=== PATIENT | male | born 1975 | race Caucasian/White ===

== ENCOUNTER 2022-07-09 11:38 | Emergency (ER) | payer MEDICAID ==
[~2022-07-09] VITALS: Ht 177.8 cm; Wt 134.1 kg
[~2022-07-09 11:38] MED LIST: ALBU6.7H14 INH; AMLO10TA13; ATEN50TA2 PO; ESCI10TA PO; FLUT1DIS4 INH
[2022-07-09 11:47] VITALS: BP 143/103
[2022-07-09] MEDS ORDERED: LIDOcaine 1% 30ml preserv. free vial SQ STA (12:48)
[2022-07-09] MEDS ORDERED: amox tr/potassium clavulanate 875/125mg TAB PO ONE (14:05)
[2022-07-09] MEDS ORDERED: AMOX-117 PO (14:08)
[2022-07-09] MEDS ORDERED: HYDR-3965 PO (14:08)
== END 2022-07-09 14:25 | disposition home or self-care (01) ==
LOC: ER 11:38
DX: K04.7 Periapical abscess without sinus (principal); I10 Essential (primary) hypertension; K21.9 Gastro-esophageal reflux disease without esophagitis; Z90.49 Acquired absence of other specified parts of digestive tract; Z88.8 Allergy status to other drugs, medicaments and biological substances; Z79.899 Other long term (current) drug therapy
CPT/HCPCS: 99283

== ENCOUNTER 2023-01-05 08:55 | Emergency (ER) | payer MEDICAID ==
[~2023-01-05] VITALS: Ht 177.8 cm; Wt 135.0 kg
[2023-01-05 08:56] VITALS: BP 138/95
[2023-01-05] MEDS ORDERED: HYDR-3972 PO (09:41)
[2023-01-05] MEDS ORDERED: AMOX-580 PO (09:41)
== END 2023-01-05 10:06 | disposition home or self-care (01) ==
LOC: ER 08:55
DX: K04.7 Periapical abscess without sinus (principal); I10 Essential (primary) hypertension; K21.9 Gastro-esophageal reflux disease without esophagitis; Z72.89 Other problems related to lifestyle; Z90.49 Acquired absence of other specified parts of digestive tract; Z88.8 Allergy status to other drugs, medicaments and biological substances; Z79.899 Other long term (current) drug therapy
CPT/HCPCS: 99283

== ENCOUNTER 2023-03-16 08:22 | Emergency (ER) | payer MEDICAID ==
[~2023-03-16] VITALS: Ht 175.3 cm; Wt 136.0 kg
[2023-03-16] MEDS ORDERED: TRAM50TA2 PO (10:20)
[2023-03-16 10:38] VITALS: BP 152/102
== END 2023-03-16 10:40 | disposition home or self-care (01) ==
LOC: ER 08:23
DX: S50.01XA Contusion of right elbow, initial encounter (principal); M25.422 Effusion, left elbow; M25.522 Pain in left elbow; I10 Essential (primary) hypertension; Z90.49 Acquired absence of other specified parts of digestive tract; Z72.89 Other problems related to lifestyle; Z88.8 Allergy status to other drugs, medicaments and biological substances; Z79.899 Other long term (current) drug therapy; W13.8XXA Fall from, out of or through other building or structure, initial encounter; Y93.55 Activity, bike riding; Y92.89 Other specified places as the place of occurrence of the external cause; Y99.8 Other external cause status
CPT/HCPCS: 29105; 73080; 99283; A4565; A6449

== ENCOUNTER 2023-06-25 06:22 | Emergency (ER) | payer MEDICAID ==
[~2023-06-25] VITALS: Ht 177.8 cm; Wt 130.4 kg
[~2023-06-25 06:22] MED LIST changes: +TRAM50TA2 PO
[2023-06-25] MEDS ORDERED: PENI500T2 PO (06:47)
[2023-06-25 08:22] VITALS: BP 153/100; PULSE 88; RESP 18; TEMP 97.7; O2SAT 100
== END 2023-06-25 08:28 | disposition home or self-care (01) ==
LOC: ER 06:23
DX: K04.7 Periapical abscess without sinus (principal); K02.9 Dental caries, unspecified; K21.9 Gastro-esophageal reflux disease without esophagitis; G89.29 Other chronic pain; M54.9 Dorsalgia, unspecified; I10 Essential (primary) hypertension; J45.909 Unspecified asthma, uncomplicated; Z88.8 Allergy status to other drugs, medicaments and biological substances; Z79.899 Other long term (current) drug therapy
CPT/HCPCS: 99283

== ENCOUNTER 2023-09-20 05:42 | Emergency (ER) | payer MEDICAID ==
[~2023-09-20] VITALS: Ht 177.8 cm; Wt 135.0 kg
[2023-09-20 05:46] VITALS: TEMP 98.9
[2023-09-20] MEDS ORDERED: normal saline 1000ML IV soln IVB ONE (06:40)
[2023-09-20] MEDS ORDERED: BUPIVAcaine/PF 2.5mg/ml (0.25%) 10ml vial SQ ONE (06:50)
[2023-09-20] MEDS ORDERED: CefTRIAXone 2gm/D5W 50ml BAG 50 ML IV ONE (06:50)
[2023-09-20 07:34] LABS: BASOPHILS # (AUTO) 0.1 X10'3 (0-0.2); BASOPHILS % (AUTO) 0.8 % (0-1); EOSINOPHILS # (AUTO) 0.3 X10'3 (0-0.9); EOSINOPHILS % (AUTO) 2.9 % (0-6); HEMATOCRIT 43.4 % (42.0-52.0); HEMOGLOBIN 14.6 g/dl (14.0-17.9); LYMPHOCYTES # (AUTO) 0.9 X10'3 (1.1-4.8); LYMPHOCYTES % (AUTO) 9.9 % (21-51); MEAN CORPUSCULAR HEMOGLOBIN 31.9 PG (27.0-31.0); MEAN CORPUSCULAR HGB CONC 33.6 g/dL (33.0-36.5); MEAN PLATELET VOLUME 8.2 FL (7.4-10.4); MONOCYTES # (AUTO) 1.2 X10'3 (0-0.9); MONOCYTES % (AUTO) 13.2 % (2-12); NEUTROPHILS # (AUTO) 6.7 X10'3 (1.8-7.7); NEUTROPHILS % (AUTO) 73.2 % (42-75); PLATELET COUNT 303 X10'3 (140-440); RED BLOOD COUNT 4.56 X10'6 (4.70-6.10); RED CELL DISTRIBUTION WIDTH 14.3 % (11.5-14.5); WHITE BLOOD COUNT 9.2 X10'3 (4.5-11.0)
[2023-09-20 07:47] LABS: ALANINE AMINOTRANSFERASE 84 U/L (12-78); ALBUMIN 3.8 G/DL (3.4-5.0); ALBUMIN/GLOBULIN RATIO 0.9 (1.1-1.5); ALKALINE PHOSPHATASE 83 IU/L (46-116); ANION GAP 7 (8-16); ASPARTATE AMINO TRANSFERASE 33 U/L (10-37); BILIRUBIN,TOTAL 0.7 MG/DL (0.1-1.0); BLOOD UREA NITROGEN 11 MG/DL (7-18); BUN/CREATININE RATIO 17.5 (10.0-20.0); CALCIUM 8.7 MG/DL (8.5-10.1); CHLORIDE 100 MMOL/L (99-107); CREATININE 0.63 MG/DL (0.60-1.10); GLUCOSE 114 MG/DL (70-104); POTASSIUM 4.5 MMOL/L (3.5-5.1); SODIUM 135 MMOL/L (135-145); TOTAL CARBON DIOXIDE 27.6 MMOL/L (24-32); TOTAL PROTEIN 7.9 G/DL (6.4-8.2); eCRCL 150 ML/MIN; eGFR > 90 ML/MIN
[2023-09-20] MEDS ORDERED: iohexol 300mg/ml 100ml inj. ONE (07:59)
[2023-09-20] MEDS ORDERED: AMOX-117 PO (11:35)
[2023-09-20 11:43] VITALS: BP 163/97; PULSE 70; RESP 14; O2SAT 98
== END 2023-09-20 11:46 | disposition home or self-care (01) ==
LOC: ER 05:42
DX: K08.89 Other specified disorders of teeth and supporting structures (principal); I10 Essential (primary) hypertension; K21.9 Gastro-esophageal reflux disease without esophagitis; G89.29 Other chronic pain; M54.9 Dorsalgia, unspecified; Z88.8 Allergy status to other drugs, medicaments and biological substances; Z79.899 Other long term (current) drug therapy
CPT/HCPCS: 36415; 64400; 70491; 80053; 83605; 83735; 84145; 85025; 87040; 96361; 96365; 99285; J0696; J3490; J7030; Q9967; 41800

== ENCOUNTER 2024-01-14 18:15 | Emergency (ER) | payer MEDICAID ==
[~2024-01-14] VITALS: Ht 177.8 cm; Wt 137.0 kg
[2024-01-14 18:44] VITALS: BP 127/87; PULSE 83; RESP 16; TEMP 98.5; O2SAT 99
[2024-01-14] MEDS ORDERED: ketorolac trometh inj. 60 MG/2 ML VIAL IM ONE (19:45)
[2024-01-14] MEDS ORDERED: AMOX-117 PO (19:45)
[2024-01-14] MEDS: ketorolac tromethamine 15mg/ml inj. IM ONE (20:12)
== END 2024-01-14 20:22 | disposition home or self-care (01) ==
LOC: ER 18:15
DX: K04.7 Periapical abscess without sinus (principal); K08.89 Other specified disorders of teeth and supporting structures; K02.9 Dental caries, unspecified; I10 Essential (primary) hypertension; J45.909 Unspecified asthma, uncomplicated; K21.9 Gastro-esophageal reflux disease without esophagitis; Z88.8 Allergy status to other drugs, medicaments and biological substances; Z79.899 Other long term (current) drug therapy; Z79.2 Long term (current) use of antibiotics; Z90.49 Acquired absence of other specified parts of digestive tract
CPT/HCPCS: 96372; 99283; J1885

== ENCOUNTER 2024-04-22 17:33 | Emergency (ER) | payer MEDICAID ==
[~2024-04-22] VITALS: Ht 175.3 cm; Wt 136.9 kg
[2024-04-22 18:33] LABS: ALBUMIN 3.9 G/DL (3.4-5.0); ANION GAP 13 (8-16); BLOOD UREA NITROGEN 14 MG/DL (7-18); BUN/CREATININE RATIO 13.6 (10.0-20.0); C-REACTIVE PROTEIN 2.34 MG/DL (0.0-0.5); CALCIUM 8.6 MG/DL (8.5-10.1); CHLORIDE 96 MMOL/L (99-107); CREATININE 1.03 MG/DL (0.60-1.10); GLUCOSE 111 MG/DL (70-104); SODIUM 132 MMOL/L (135-145); TOTAL CARBON DIOXIDE 23.3 MMOL/L (24-32); eCRCL 89 ML/MIN; eGFR 77 ML/MIN
[2024-04-22 18:51] LABS: BASOPHILS # (AUTO) 0.1 X10'3 (0-0.2); BASOPHILS % (AUTO) 0.9 % (0-1); EOSINOPHILS # (AUTO) 0.4 X10'3 (0-0.9); HEMATOCRIT 43.9 % (42.0-52.0); HEMOGLOBIN 14.9 g/dl (14.0-17.9); LYMPHOCYTES # (AUTO) 1.7 X10'3 (1.1-4.8); MEAN CORPUSCULAR HEMOGLOBIN 32.9 PG (27.0-31.0); MEAN CORPUSCULAR HGB CONC 33.9 g/dL (33.0-36.5); MEAN PLATELET VOLUME 8.1 FL (7.4-10.4); MONOCYTES % (AUTO) 11.1 % (2-12); NEUTROPHILS # (AUTO) 6.2 X10'3 (1.8-7.7); PLATELET COUNT 401 X10'3 (140-440); RED BLOOD COUNT 4.53 X10'6 (4.70-6.10); RED CELL DISTRIBUTION WIDTH 13.9 % (11.5-14.5); WHITE BLOOD COUNT 9.4 X10'3 (4.5-11.0)
[2024-04-22] MEDS ORDERED: iohexol 300mg/ml 100ml inj. ONE (19:13)
[2024-04-22] MEDS: ondansetron/PF 4mg/2ml inj IV ONE (20:08)
[2024-04-22] MEDS: piperacillin/tazo 3.375gm/50ml 50 ML IV ONE (20:08)
[2024-04-22] MEDS: morphine 4 MG/ML inj SYRINge IV ONE ×2 (20:08→21:35)
[2024-04-22] MEDS: normal saline 1000ml 1,000 ML IV ONE (20:08)
[2024-04-22] MEDS: vancomycin/NS 1 GM ADD-VANTAGE 250 ML IV ONE (21:15)
[2024-04-22] MEDS: ketorolac trometh 15mg/ml vial 15 MG/ML ML IV ONE (21:36)
[2024-04-22] MEDS: HYDROcodone/acetaminophen 5mg/325mg tablet PO ONE (21:38)
[2024-04-22] MEDS ORDERED: HYDR-3965 PO (21:40)
[2024-04-22] MEDS ORDERED: DOXY-460 PO (21:40)
[2024-04-22] MEDS ORDERED: CEPH-585 PO (21:40)
[2024-04-22] MEDS ORDERED: ONDA-245 PO (21:40)
[2024-04-22] MEDS: DOXYCYCLINE 100MG CAPSULE PO STA (21:46)
[2024-04-22 21:59] LABS: BILIRUBIN,URINE NEGATIVE (Neg); CLARITY,URINE CLEAR (Clear); COLOR,URINE STRAW (Yellow); GLUCOSE, URINE NEGATIVE (Neg); KETONES,URINE NEGATIVE (Neg); LEUKOCYTE ESTERASE ,URINE NEGATIVE (Neg); NITRITES, URINE NEGATIVE (Neg); OCCULT BLOOD,URINE NEGATIVE (Neg); PROTEIN,URINE NEGATIVE (Neg); UROBILINOGEN,URINE 0.2 E.U/dL (0.2-1.0)
[2024-04-22 22:04] LABS: UA COLLECTION TYPE CLN CATCH MIDSTREAM
[2024-04-22] MEDS: TETanus/Pertussis (Acell)/Diphther VAC/PF (Tdap-Adult) 0.5ml syringe IMVAC ONE (22:11)
[2024-04-22] MEDS: bacitracin 15gm ointment TP ONE (22:11)
[2024-04-22 23:21] VITALS: BP 130/79; PULSE 90; RESP 16; TEMP 97.8; O2SAT 92
== END 2024-04-22 23:25 | disposition home or self-care (01) ==
LOC: ER 17:34
DX: L03.115 Cellulitis of right lower limb (principal); I10 Essential (primary) hypertension; J45.909 Unspecified asthma, uncomplicated; K21.9 Gastro-esophageal reflux disease without esophagitis; G89.29 Other chronic pain; M54.9 Dorsalgia, unspecified; Z88.8 Allergy status to other drugs, medicaments and biological substances; Z79.899 Other long term (current) drug therapy; Z90.49 Acquired absence of other specified parts of digestive tract
CPT/HCPCS: 36415; 73701; 80048; 81003; 83605; 84145; 85025; 85651; 86140; 87040; 90471; 90715; 96365; 96366; 96368; 96375; 96376; 99285; A6258; J1885; J2270; J2405; J2543; J3370; J7030; Q9967

== ENCOUNTER 2024-08-19 14:11 | Emergency (ER) | payer MEDICAID ==
[~2024-08-19] VITALS: Ht 177.8 cm; Wt 127.3 kg
[~2024-08-19 14:11] MED LIST changes: +ONDA-245 PO
[2024-08-19 14:22] VITALS: BP 111/80; TEMP 97.4
[2024-08-19] MEDS ORDERED: HYDR-3973 PO (16:59)
[2024-08-19] MEDS ORDERED: AMOX875T10 PO (16:59)
[2024-08-19 17:10] VITALS: PULSE 74; RESP 18; O2SAT 97
== END 2024-08-19 17:12 | disposition home or self-care (01) ==
LOC: ER 14:12
DX: K04.7 Periapical abscess without sinus (principal); I10 Essential (primary) hypertension; G89.29 Other chronic pain; J45.909 Unspecified asthma, uncomplicated; K21.9 Gastro-esophageal reflux disease without esophagitis; Z88.8 Allergy status to other drugs, medicaments and biological substances; Z79.899 Other long term (current) drug therapy; Z90.49 Acquired absence of other specified parts of digestive tract
CPT/HCPCS: 99283

== ENCOUNTER 2024-10-11 15:27 | Emergency (ER) | payer MEDICAID ==
[~2024-10-11] VITALS: Ht 177.8 cm; Wt 127.4 kg
[2024-10-11 16:09] LABS: BILIRUBIN,URINE NEGATIVE (Neg); CLARITY,URINE CLOUDY (Clear); COLOR,URINE YELLOW (Yellow); GLUCOSE, URINE NEGATIVE (Neg); KETONES,URINE TRACE mg/dl (Neg); LEUKOCYTE ESTERASE ,URINE MODERATE (Neg); NITRITES, URINE POSITIVE (Neg); OCCULT BLOOD,URINE MODERATE (Neg); PROTEIN,URINE 100 mg/dl (Neg)
[2024-10-11 16:11] LABS: UA COLLECTION TYPE CLN CATCH MIDSTREAM
[2024-10-11 16:25] LABS: BACTERIA,URINE 4+ /HPF (Neg); RBC,URINE 20-50 /HPF (0-2); SQUAMOUS EPITHELIAL CELL,UR FEW /LPF (FEW); WBC CLUMPS,URINE FEW /HPF (NEGATIVE); WBC,URINE TNTC /HPF (0-4)
[2024-10-11] MEDS: CefTRIAXone 1000mg IM Kit (w/lidocaine diluent) IM ONE (17:46)
[2024-10-11] MEDS ORDERED: LIDO700A32 TOP (18:13)
[2024-10-11] MEDS ORDERED: CEFU500T66 PO (18:13)
[2024-10-11 18:37] VITALS: BP 144/94; PULSE 94; RESP 16; TEMP 98.6; O2SAT 97
== END 2024-10-11 18:39 | disposition home or self-care (01) ==
LOC: ER 15:28
DX: S20.212A Contusion of left front wall of thorax, initial encounter (principal); N39.0 Urinary tract infection, site not specified; I10 Essential (primary) hypertension; J45.909 Unspecified asthma, uncomplicated; K21.9 Gastro-esophageal reflux disease without esophagitis; G89.29 Other chronic pain; Z88.8 Allergy status to other drugs, medicaments and biological substances; Z79.899 Other long term (current) drug therapy; Z90.49 Acquired absence of other specified parts of digestive tract; X58.XXXA Exposure to other specified factors, initial encounter; Y93.89 Activity, other specified; Y92.89 Other specified places as the place of occurrence of the external cause; Y99.8 Other external cause status
CPT/HCPCS: 36415; 71045; 81001; 87088; 87491; 87591; 96372; 99284; J0696; 87077; 87186

== ENCOUNTER 2024-10-23 21:03 | Emergency (ER) | payer MEDICAID ==
[~2024-10-23] VITALS: Ht 177.8 cm; Wt 107.3 kg
[~2024-10-23 21:03] MED LIST changes: +CEFU500T66 PO; +LEVO-65 PO; +LIDO700A32 TOP
[2024-10-23 21:32] VITALS: BP 156/78; PULSE 83; O2SAT 95
[2024-10-24 00:08] VITALS: RESP 15
[2024-10-24] MEDS: ketorolac trometh 30MG/ML vial 30 MG/ML VIAL IM ONE (00:08)
[2024-10-24 00:12] VITALS: TEMP 96.6
== END 2024-10-24 00:13 | disposition home or self-care (01) ==
LOC: ER 21:03
DX: M79.631 Pain in right forearm (principal); I10 Essential (primary) hypertension; I21.9 Acute myocardial infarction, unspecified; G89.29 Other chronic pain; J45.909 Unspecified asthma, uncomplicated; K21.9 Gastro-esophageal reflux disease without esophagitis; C7A.00 Malignant carcinoid tumor of unspecified site; Z88.8 Allergy status to other drugs, medicaments and biological substances; Z90.49 Acquired absence of other specified parts of digestive tract; Z79.899 Other long term (current) drug therapy
CPT/HCPCS: 29260; 73090; 96372; 99283; J1885